=== PATIENT | female | born 1975 | race Caucasian/White ===

== ENCOUNTER 2024-08-12 11:29 | Emergency (ER) | payer BC, SELFPAY ==
--- NOTE | ~2024-08-12 | CT_ITS ---
History: Headache PROCEDURE: CT head without contrast. COMPARISON: 04/05/2019 TECHNIQUE: Axial imaging of the head performed from the skull base to the vertex without IV contrast. Sagittal a nd coronal reformations obtained. DLP: 605 mGy-cm FINDINGS: The ventricles are normal in size, shape and position. There is no mass, mass effect or midline shift. There is no abnormal extra-axial fluid collection or intracranial hemorrhage. Visualized paranasal sinuses are clear. The mastoid air cells are well aerated. No acute displaced fractures within the overlying cranium. Impression: No acute intracranial hemorrhage or suspicious mass effect. Reviewed, dictated and finalized at location A. Impression: No acute intracranial hemorrhage or suspicious mass effect.
[2024-08-12 11:30] VITALS: BP 123/67; PULSE 114; RESP 16; TEMP 36.6; O2SAT 100
--- OUTSIDE RECORDS SUMMARY | 2024-08-12 11:31 | XMS_ITS | Encounter Summary ---
Author Organization [facility] Healthcare Address [address] [place] [address] Care Team Providers Care Kiln Furniture Saw Tender Name Role Phone Dana Wilcox MD Primary Care Provider [phone] Jennifer Carlos MD Unavailable [phone] Encounter Details Date Type Department Care Team (Late st Contact Info) Description 08/29/2023 Telephone [facility] Medical Group at [address] [address] Becky Ram LPN Social History Tobacco Use Types Packs/Day Years Used Date Smoking Tobacco: Never Passive Smoke Exposure: Current Smokeless Tobacco: Never Alcohol Use Standard Drinks/Week Comments No 0 (1 standard drink = 0.6 oz pur e alcohol) AUDIT-C Answer Date Recorded Frequency of Alcohol Consumption Not on file 12/24/2022 Q2: How many drinks containi ng alcohol do you have on a typical day when you are drinking? Patient does not drink Frequency of Binge Drinking Not on file 08/2022 PHQ-2 Answer Date Recorded PHQ-2 Total Score (If total score is 3 or more points, staff should administer the PHQ-9) 0 08/16/2022 Comments No Sex and Gender Information Value Date Recorded Sex Assigned at Not on file Legal Sex Female 12:57 PM ECONOMIC MANAGER Gender Identity Female 02/12/2019 8:37 AM CDT Sexual Orientation Straight 12/22/2018 7: 36 AM CDT documented as of this encounter Ordered Prescriptions Prescription Sig Dispense Quantity Refills Last Filled Start Date End Date atorvastatin (LIPITOR) 10 mg tabletIndications:Hy perlipidemia, unspecified hyperlipidemia type Take 1 tablet (10 mg total) by mouth daily 90 tablet 1 08/29/2023 documented in this encounter Plan of Treatment Not on file documented as of this encounter Visit Diagnoses Diagnosis Hyperlipidemia, unspecified hyperlipidemia type documented in this encounter Discontinued Medications Medication Sig Discontinue Reason Start Date End Da te atorvastatin (LIPITOR) 10 mg tabletIndications:Hyperlip idemia, unspecified hyperlipidemia type TAKE 1 TABLET BY MOUTH EVERY DAY Reorder 07/25/2023 08/29/2023 documented as of this encounter Additional Health Concerns Infection Onset Date Last Indicated Resolved Time COVID: Suspected 04/29/2024 04/29/2024 04/30/2024 3:05 AM ECONOMIC MANAGER COVID: Suspected 06/21/2024 06/21/2024 06/21/2024 6:11 PM ECONOMIC MANAGER documented as of this encounter Care Teams Kiln Furniture Saw Tender Relationship Specialty Start Date End Date Dana Wilcox MD [address] [facility] [address] [place] [address] PCP - General 08/20/16 [place] [address] [place] [address] Director Of Social Media Marketing Obstetrics and Gynecology 01/20/21 documented as of this encounter
--- OUTSIDE RECORDS SUMMARY | 2024-08-12 11:31 | XMS_ITS | Referral Summary ---
Author Organization [facility] Address [facility] [place] [address] Care Team Providers Care Molybdenum Steamer Operator Name Role Phone Dana Wilcox MD Primary Care Provider [phone] Jennifer Carlos MD Unavailable [phone] Encounters Date Type Department Care Team Description 07/03/2024 3:30 PM LAB TECHNOLOGIST Procedure visit [facility] [address] [facility] [address] [place] [phone] Jarred Beckham NP Intractable chronic migraine without aura and without status migrainosus (Primary Dx) 06/21/2024 6:45 AM LAB TECHNOLOGIST - 06/21/2024 11:59 PM LAB TECHNOLOGIST Hospital Encounter [facility] [address] [place], [place] [id number] Bronchitis Discharge Disposition: Discharge to home or self care 06/21/2024 5:45 PM LAB TECHNOLOGIST Office Visit [facility] Medical Group [facility] Care at [address] [address] Chandrika Watters NP Bronchitis (Primary Dx) from Last 3 Months Allergies Active Allergy Reactions Criticality Noted Date Comments Azithromycin Other (See comments) Low Reaction: Gastrointestinal Intolerance, , Reaction: Gastrointestinal Intolerance, Erythromycin Unknown Low Medications tranexamic acid (Lysteda) 650 mg tabletIndications :Heavy menstrual bleeding Take 1 tablet (650 mg total) by mouth 3 (three) times a day Take 2 tablets every 8 hours for a maximum of 5 days during menstrual period. 30 tablet 11 03/09/20 21 Active naratriptan (AMERGE) 2.5 mg tablet TAKE 1 TABLET BY MOUTH AT ONSET OF HEADACHE. MAY REPEAT IN 2 HOURS IF NEEDED. MAX 2 TABS/24 HOURS 9 tablet 1 02/03/20 23 Active naproxen (NAPROSYN) 500 mg tablet TAKE 1 TABLET BY MOUTH 2 TIMES A DAY NEEDED FOR PAIN. 60 tablet 2 06/15/19 24 Active methocarbamoL (ROBAXIN) 500 mg tablet TAKE 1 TABLET BY MOUTH TWICE A DAY NEEDED FOR MUSCLE SPASMS 60 tablet 10/07/19 24 Active sertraline (ZOLOFT) 100 mg tabletIndications :Anxiety Take 1 tablet (100 mg total) by mouth daily 90 tablet 2 02/08/20 24 Active atorvastatin (LIPITOR) 10 mg tabletIndications :Hyperlipidemia, unspecified hyperlipidemia type Take 1 tablet (10 mg total) by mouth daily 90 tablet 2 02/08/20 24 Active desipramine (NOPRAMIN) 10 mg tablet TAKE 3 TABLETS BY MOUTH AT BEDTIME 270 tablet 04/16/20 24 Active benzonatate (TESSALON) 200 mg capsuleIndication s:Bronchitis Take 1 capsule (200 mg total) by mouth 3 (three) times a day as needed for cough 30 capsule 06/21/19 25 Active albuterol HFA (PROVENTIL HFA,VENTOLIN HFA,PROAIR HFA) 90 mcg/actuation inhalerIndication s:Bronchitis Inhale 2 puffs every 6 (six) hours as needed for wheezing or shortness of breath 1 each 06/21/19 25 Active methylPREDNISolon e (Medrol, Anthony,) 4 mg DosepackIndicatio ns:Bronchitis follow package directions 1 packet 06/21/19 25 Active dilTIAZem XR 120 mg 24 hr capsuleIndication s:HTN (hypertension), benign,Palpitatio ns TAKE 1 CAPSULE BY MOUTH EVERY DAY 90 capsule 1 07/19/19 25 Active dilTIAZem CD/XR/XT (dilTIAZem XR) 120 mg 24 hr capsuleIndication s:HTN (hypertension), benign,Palpitatio ns Take 1 capsule (120 mg total) by mouth daily 90 capsule 1 01/20/20 24 2024 Discontinued Active Problems Problem Noted Date Diagnosed Date Sinus tachycardia 07/29/2023 Carpal tunnel syndrome of right wrist 09/28/2018 Lymphadenopathy 01/20/2018 Assessment & Plan (01/20/2018 7:36 AM CDT): Patient apparently demonstrated a reactive lymph node along of the back of the head that was related to an ingrown hair. After antibiotic treatment resolved. Patient was reassured there was nothing of concern. Patient can follow back up as needed. Mixed hyperlipidemia 11/09/2017 Migraine without aura, not i ntractable, without status migrainosus 03/30/2017 Assessment & Plan (04/25/2020 8:52 AM LAB TECHNOLOGIST): Ms. Michel has a longstanding history of migraine headaches. She has failed multiple preventive treatment regimens. She has previously been on nortriptyline which was stopped due to side effects, Topamax which was stopped due to flaco gomez , and is currently on nopramin which has low efficacy for her migraine prevention. She is currently having 15-20 headache days per month that last all day. She has been taking her abortive treatments with minimal relief and often having to double dose her naratriptan. It has previously been discussed with her that she could possibly be a candidate for Botox for migraine protocol, due to her headache frequency when difficulty with other preventative medications I do believe she is a great candidate for Botox per migraine protocol. Plan: 1. Seek insurance coverage for Botox for migraine protocol. 2. Headache diary 3. Continue nopramin 10mg for headache prevention. 4. Continue naratriptan 2.5 mg tablets at the onset of acute headache. At today s visit migraine education was performed. We discussed avoidance of migraine triggers and non-medicinal strategies for preventing migraines. Topics of discussion included improved sleep hygiene, healthy diet, and stress reduction techniques. We also discussed the importance of avoiding medication overuse, as this can promote analgesic rebound headache. Right elbow pain 03/30/2017 Neck pain 10/03/2014 Overview (08/26/2016): Cervical neck pain Anxiety 03/22/2014 Overview (08/27/2016): Anxiety Assessment & Plan (08/07/2023 9:51 PM CDT): Stable-Zoloft refilled Dyspnea on exertion 12/28/2013 Overview (08/26/2016): JOHNSON (dyspnea on exertion) Chest pain 12/28/2013 Overview (08/27/2016): Chest pain HTN (hypertension), benign 12/28/2013 Overview (08/27/2016): HTN (hypertension), benign Family history of coronary artery disease 2013 Overview (08/27/2016): Family history of premature CAD Abnormal echocardiography 12/28/2013 Overview (08/27/2016): Abnormal echocardiogram Palpitations 12/28/2013 Overview (08/27/2016): Palpitation Extrinsic asthma 12/04/2013 Overview (08/27/2016): EXTRINSIC ASTHMA NOS Resolved Problems Problem Noted Date Diagnosed Date Resolved Date Dyslipidemia 12/28/2013 06/01/2022 Overview (08/26/2016): Dyslipidemia Immunizations Immunization Administration Dates Next Due Influenza, Quadrivalent, Spl it, Preservative Free, Intramuscular 04/26/2023,02/10/2022,04/25/2020 Influenza, Trivalent, Preser vative Free, Intramuscular 02/08/2024 Influenza, Unspecified 04/26/2023 Td, adsorbed 01/22/2002 Tdap 02/14/2014,02/14/2014 Social History Tobacco Use Types Packs/Day Years Used Date Smoking Tobacco: Never Passive Smoke Exposure: Current Smokeless Tobacco: Never Tobacco Cessation:Counseling Given: Not Answered Alcohol Use Standard Drinks/Week Comments No 0 (1 standard drink = 0.6 oz pur e alcohol) AUDIT-C Answer Date Recorded Q1: How often do you have a drink containing alcohol? Never 03/02/2024 Q2: How many drinks containi ng alcohol do you have on a typical day when you are drinking? Patient does not drink Q3: How often do you have si x or more drinks on one occasion? Never 03/02/2024 PHQ-2 Answer Date Recorded PHQ-2 Total Score 0 02/08/2024 Comments No Sex and Gender Information Value Date Recorded Sex Assigned at Not on file Legal Sex Female 12:57 PM LAB TECHNOLOGIST Gender Identity Female 02/12/2019 8:37 AM CDT Sexual Orientation Straight 12/22/2018 7: 36 AM CDT Last Filed Vital Signs Vital Sign Reading Time Taken Comments Blood Pressure 124/76 07/03/2024 3:20 PM LAB TECHNOLOGIST Pulse 103 07/03/2024 3:20 PM LAB TECHNOLOGIST Temperature 36.8 C (98.2 F) 06/21/2024 5:43 PM LAB TECHNOLOGIST Respiratory Rate 16 07/03/2024 3:20 PM LAB TECHNOLOGIST Oxygen Saturation 99% 07/03/2024 3:20 PM LAB TECHNOLOGIST Inhaled Oxygen Concentration - - Weight 56.7 kg (125 lb) 07/03/2024 3:20 PM LAB TECHNOLOGIST Height 157.5 cm (5' 2 ) 07/03/2024 3:20 PM LAB TECHNOLOGIST Body Mass Index 22.86 07/03/2024 3:20 PM LAB TECHNOLOGIST Plan of Treatment Not on file Procedures Procedure Name Priority Date/Time Associated Diagnosis Comments BOTOX INJECTION Routine 07/03/2024 3:30 PM LAB TECHNOLOGIST Intractable chronic migraine without aura and without status migrainosus POC INFLUENZA A/B, COVID-19 ANTIGEN Routine 06/21/2024 6:10 PM LAB TECHNOLOGIST Bronchitis POCT RAPID STREP Routine 06/21/2024 5:55 PM LAB TECHNOLOGIST Bronchitis THROAT CULTURE Routine 06/21/2024 5:55 PM LAB TECHNOLOGIST Bronchitis THINPREP IMAGING PAP AND HPV MRNA E6/E7 REFLEX HPV 16,18/45 Routine 04/06/2024 2:20 PM LAB TECHNOLOGIST Encounter for well woman exam HEPATITIS C ANTIBODY Routine 2024 9:09 AM CDT Encounter for hepatitis C screening test for low risk patient SCREENING MAMMOGRAM 2D BILATERAL Schedule Routine, Read Routine (OP Routine) 06/18/2022 COLONOSCOPY Routine 10/29/2016 from Last 3 Months or Most Recently Relevant to Health Maintenance Results * Botox Injection (07/03/2024 3:30 PM LAB TECHNOLOGIST) Narrative Annalise Salamanca - 07/03/2024 3:30 PM LAB TECHNOLOGIST Annalise Salamanca 07/04/2024 9:33 AM Botox Injection Performed by: Jarred Beckham NP Authorized by: Jarred Beckham NP [place] Protocol: Procedure Details - Botox Injection: Procedure Details: See Botox flow sheet for details on injection sites and amounts. us Jarred Beckham BOBBIN WINDER TENDER IN CLINIC/BEDSIDE ORDERABLES Fi nal Result * POC Influenza A/B, COVID-19 antigen (06/21/2024 6:10 PM LAB TECHNOLOGIST) Pathologist [facility] Influenza A Ag, POC Negative Negative [facility] Influenza B Ag, POC Negative Negative [facility]W COVID-19 Ag POC Presumptive Negative Presumptive Negative, Invalid [facility]W Swab 06/21/2024 6:10 PM LAB TECHNOLOGIST us Chandrika Watters NP POINT OF CARE TEST ORDERABLES Final Result Performing Organization Address City/State/[facility] Co de Phone Number [facility] CC EDW [address] [place] [address] * POCT rapid strep A (06/21/2024 5:55 PM LAB TECHNOLOGIST) Rapid Strep A, POC Negative Negative Swab 06/21/2024 5:55 PM LAB TECHNOLOGIST us Chandrika Watters NP POINT OF CARE TEST ORDERABLES Final Result * Throat culture Throat (06/21/2024 5:55 PM LAB TECHNOLOGIST) Report Final Report: No growth of pathogens. Comment:Testing performed by : [facility], [address] [facility], [place]., [address] Throat 06/21/2024 5:55 PM LAB TECHNOLOGIST 06/22/2024 1:11 AM LAB TECHNOLOGIST Narrative ALLI NUNN - 06/22/2024 7:33 PM LAB TECHNOLOGIST Testing performed by [facility] Microbiology Laboratory ([phone]). Chandrika Watters BOBBIN WINDER TENDER LAB MICROBIOLOGY - GENERAL ORD ERABLES Final Result ALLI NUNN [address] [place] [address] * ThinPrep(R) Imaging Pap and HPV mRNA E6/E7 Reflex HPV 16,18/45 (04/06/2024 2:20 PM LAB TECHNOLOGIST) CLINICAL INFORMATION: [facility] Comment:None given LMP [facility] Comment:NONE GIVEN Previous Pap [facility] Comment:NONE GIVEN Prev. Bx [facility] Comment:NONE GIVEN SOURCE: [facility] Comment:None given Pap, specimen adequacy [facility] Comment: Satisfactory for evaluation. Endocervical/transformation zone component absent. Age and/or menstrual status not provided HPV interp [facility] Comment: Cytology Results: Negative for intraepithelial lesion or malignancy. COMMENTS [facility] Comment: This Pap test has been evaluated with computer assisted technology. Screw Machine Setter [facility] Comment: AYANNA [place](ASCP) CT screening location: [place] [address] [place] [address] Comment [facility] Comment: EXPLANATORY NOTE: The Pap is a screening test for cervical cancer. It is not a diagnostic test and is subject to false negative and false positive results. It is most reliable when a satisfactory sample, regularly obtained, is submitted with relevant clinical findings and history, and when the Pap result is evaluated along with historic and current clinical information. Human papillomavirus RNA, High Risk E6/E7 Not Detected Not Detected [facility] [employer] Comment: Methodology: Manganese Wheeler-Mediated Amplification This assay detects E6/E7 viral messenger RNA (mRNA) from 14 high-risk HPV types (16,18,31,33,35,39,45,51,52,56,58,59,66,68). Cervical sources are required for HPV testing. If a vaginal source from a patient who has had a total hysterectomy with removal of cervix was submitted, please contact the testing laboratory for alternative testing options. For additional information, please refer to [email or web address] (This link if provided for information/ educational purposes only.) Swab 04/06/2024 2:20 PM LAB TECHNOLOGIST 04/07/2024 2:33 AM LAB TECHNOLOGIST Result [facility] Maritza Vee NP LAB CYTOLOGY ORDERABLES Final Result Performing Organization Address City/[facility] [place]/[facility] Co de Phone Number [facility] [address] [place] [address] [facility] [address] [place] [address] * Hepatitis C antibody Blood (2024 9:09 AM CDT) Hep C Ab Nonreactive Nonreactive Comment: Interpretive Data Nonreactive: Antibodies to HCV not detected. Does NOT exclude the possibility of recent exposure to HCV. Equivocal: Equivocal for HCV antibodies. Supplemental molecular testing will be automatically performed to determine infection status in accordance with current CDC screening recommendations. Reactive: Positive for HCV antibodies. This may represent current or past HCV infection. Supplemental molecular testing will be automatically performed to determine current infection status in accordance with current CDC screening recommendations. Interpretive data was last revised on 2019. Blood 2024 9:09 AM CDT 2024 11:02 AM CDT Result [facility] Dana Wilcox MD LAB MICROBIOLOGY - GENERAL O RDERABLES Final Result Performing Organization Address City/[facility] [place]/ZIP Co de Phone Number HERMANNBETSY [address] Department [place] [address] * Screening Mammogram 2D Bilateral (06/18/2022) Anatomical Region Laterality Modality Breast Bilateral Mammography Result [facility] Historical Provider IMG MAMMO PROCEDURES Liss l Result * Colonoscopy (10/29/2016) Anatomical Region Laterality Modality Other Historical Provider ENDOSCOPY PROCEDURES Liss l Result from Last 3 Months or Most Recently Relevant to Health Maintenance Insurance ANTHEM ACCESS CHOICE ANTHEM ACCESS CHOICE ANTHEM ACCESS CHOICE [facility] ACCESS CHOICE Care Teams Molybdenum Steamer Operator Relationship Specialty Start Date End Date Dana Wilcox MD [address] [facility] [address], [place] [address] PCP - General 08/20/16 [place] [address] [place] [address] Sole Sewer Hand Obstetrics and Gynecology 01/20/21
--- OUTSIDE RECORDS SUMMARY | 2024-08-12 11:31 | XMS_ITS | Clinical Summary ---
Author Organization [facility] Address [address] [facility] [place] [address] Care Team Providers Care Lan Analyst Name Role Phone Izabella Cohen MD Unavailable [phone] Dana Wilcox MD Primary Care Provider [phone] Source Comments [facility],non-owned Affiliates and Associated Physician Practices is amultiple site organization consisting of ambulatory clinics and hospital sitesin [place], [place], [place] and [place]. This disclosure is being madepursuant to the Care Everywhere program and may not contain all information available regarding this patient. Last updated 18.[facility] Allergies Active Allergy Reactions Criticality Noted Date Comments Azithromycin Nausea and/or Vomiting,Psychiatric Medium 06/30/2015 Reaction: Gastrointestinal Intolerance, , Reaction: Gastrointestinal Intolerance, Erythromycin 06/20/2013 Medications * Be aware that medications may not be up to date on this document. Alwaysverify current medications with the patient. Medication Sig Dispensed Refills Start Date End Date Status naproxen (NAPROSYN) 500 MG tablet Take 500 mg by mouth 2 times daily. Active atorvastatin (LIPITOR) 10 MG tablet Take 10 mg by mouth at bedtime Active sertraline (ZOLOFT) 100 MG tablet Take 100 mg by mouth once daily Active desipramine (NORPRAMIN) 10 MG tablet TAKE 3 TABLETS BY MOUTH AT BEDTIME 08/28/2020 Active dilTIAZem ER 24hr (TIAZAC) 120 MG capsule TAKE ONE CAPSULE BY MOUTH ONCE DAILY 06/04/2020 Active sertraline (ZOLOFT) 100 MG tablet TAKE 1 TABLET BY MOUTH EVERY DAY 12/10/2020 Active fluticasone propionate (FLONASE) 50 MCG/ACT nasal sprayIndications:Sinus itis, unspecified chronicity, unspecified location Stout 2 (two) sprays into each nostril once daily 1 Each 01/06/2021 Active Active Problems Problem Noted Date Diagnosed Date Contusion of knee 06/20/2013 Social History Tobacco Use Types Packs/Day Years Used Date Smoking Tobacco: Never Smokeless Tobacco: Never Alcohol Use Standard Drinks/Week Comments Not Asked 0 (1 standard drink = 0.6 oz pur e alcohol) Sex and Gender Information Value Date Recorded Sex Assigned at Not on file Gender Identity Not on file Sexual Orientation Not on file Last Filed Vital Signs Vital Sign Reading Time Taken Comments Blood Pressure 124/80 01/06/2021 4:19 PM CDT Pulse 98 01/06/2021 4:19 PM CDT Temperature 37.3 C (99.1 F) 01/06/2021 4:19 PM CDT Respiratory Rate 16 01/06/2021 4:19 PM CDT Oxygen Saturation 98% 01/06/2021 4:19 PM CDT Inhaled Oxygen Concentration - - Weight 51.7 kg (114 lb) 01/06/2021 4:19 PM CDT Height 157.5 cm (5' 2 ) 01/06/2021 4:19 PM CDT Body Mass Index 20.85 01/06/2021 4:19 PM CDT Plan of Treatment Health Maintenance Due Date Last Done Comments COLOGUARD (AGES 45-75) - COL ON CA SCREENING 1974 COLON MONITORING 1974 COLONOSCOPY - COLON CA SCREENING 1974 CT COLONOGRAPHY - COLON CA SCREENING 1974 Colorectal Cancer Screening 1974 FIT - COLON CA SCREENING 1974 FLEX SIG - COLON CA SCREENING 1974 MAMMOGRAM 1974 PAP SMEAR 1974 HIV SCREENING 1989 HEPATITIS C SCREENING 02/13/1992 DTAP/TDAP/TD VACCINES (1 - Tdap) 1993 HEPATITIS B VACCINE (1 of 3 - 19+ 3-dose series) 1993 COVID-19 VACCINE ( - 2023-2 5 season) 2024 INFLUENZA VACCINE (#1) 2024 04/25/2020 PNEUMOCOCCAL VACCINE 50+ (1 of 1 - PCV) 02/18/2024 ZOSTER VACCINE (1 of 2) 02/18/2024 DEPRESSION SCREENING 05/23/2024 HIB VACCINE Aged Out No longer eligi ble based on patient's age to complete this topic HPV VACCINE Aged Out No longer eligi ble based on patient's age to complete this topic MENINGOCOCCAL (Group B) VACC INE SHARED DECISION-MAKING Aged Out No longer eligibl e based on patient's age to complete this topic MENINGOCOCCAL GROUPS A/C/Y/W VACCINE Aged Out No longer eligible b ased on patient's age to complete this topic Care Teams Lan Analyst Relationship Specialty Start Date End Date Dana Wilcox MD [address] [facility] [address], [place] [id number] PCP - General Internal Medicine 06/20/13 [place] [address] [facility] [address] [place], [place] [id number] Orthopedic Surgery 06/20/13
--- OUTSIDE RECORDS SUMMARY | 2024-08-12 11:31 | XMS_ITS | Clinical Summary ---
Author Organization [employer] [facility] Address [address] [place] [address] Phone Care Team Providers Care Commercial Relationship Manager Name Role Phone Dana Wilcox MD Primary Care Provider [phone] Allergies Active Allergy Reactions Criticality Noted Date Comments Azithromycin Nausea and Vomiting Low 06/30/2015 Medications nortriptyline (PAMELOR) 10 mg capsule 06/18/2015 Active busPIRone (BUSPAR) 10 mg tablet 06/19/2015 Active Active Problems Patient Care Coordination No te Formatting of this note migh t be different from the original. Primary Care: Dana Wilcox [place]: [place] [address] [place] [address] Other: Problem Noted Date Diagnosed Date Breast pain 06/30/2015 Encounters Date Type Department Care Team Description 08/01/2024 External Device Data STL ABSTRACTION Provider, Abstract 07/31/2024 External Device Data [facility] ABSTRACTION Provider, Abstract 07/28/2024 External Device Data [facility] ABSTRACTION Provider, Abstract 07/27/2024 External Device Data [facility] ABSTRACTION Provider, Abstract 07/25/2024 External Device Data [facility] ABSTRACTION Provider, Abstract 07/11/2024 External Device Data [facility] ABSTRACTION Provider, Abstract 06/13/2024 External Device Data [facility] ABSTRACTION Provider, Abstract from Last 3 Months Family History Medical History Relation Name Comments No Known Problems Daughter Stroke Father Heart Disease Maternal Grandmother No Known Problems Mother No Known Problems Other Breast Cancer Paternal Aunt Colon Cancer Paternal Grandfather Heart Disease Paternal Grandmother Liver Disease Paternal Uncle Pancreatic Cancer Paternal Uncle No Known Problems Sister Cancer Neg Hx Ovarian Cancer Neg Hx Relation Name Status Comments Daughter Father Maternal Grandmother Mother Other Paternal Aunt Paternal Grandfather Paternal Grandmother Paternal Uncle Sister Social History Tobacco Use Types Packs/Day Years Used Date Smoking Tobacco: Never Smokeless Tobacco: Never Alcohol Use Standard Drinks/Week Comments Yes 0 (1 standard drink = 0.6 oz pur e alcohol) rarely Comments No Sex and Gender Information Value Date Recorded Sex Assigned at Not on file Legal Sex Female 2:24 PM CDT Gender Identity Not on file Sexual Orientation Not on file Last Filed Vital Signs Vital Sign Reading Time Taken Comments Blood Pressure 131/89 06/30/2015 3:08 PM MACHINE SLAT BASKET MAKER Pulse 94 06/30/2015 3:08 PM MACHINE SLAT BASKET MAKER Temperature - - Respiratory Rate - - Oxygen Saturation - - Inhaled Oxygen Concentration - - Weight 46.3 kg (102 lb) 01/05/2019 1:00 PM CDT Height 157.5 cm (5' 2 ) 01/05/2019 1:00 PM CDT Body Mass Index 18.66 01/05/2019 1:00 PM CDT Plan of Treatment Health Maintenance Due Date Last Done Comments HEPATITIS B VACCINES (1 of 3 - 19+ 3-dose series) 1993 PAP SMEAR 02/18/2004 FIT-DNA Q 3 years 2019 FIT/FOBT Q 1 year 2019 Flex Sig/CT Colonography Q 5 years 2019 INFLUENZA VACCINE (#1) 2023 , 02/10/2022, 04/25/2020 DTAP/TDAP/TD VACCINES (2 - T d or Tdap) 02/15/2024 02/14/2014 ZOSTER VACCINE (1 of 2) 02/18/2024 BREAST CANCER SCREENING 08/04/2024 08/05/19 24, 06/18/2022, 05/01/2021, Additional history exists COLORECTAL SCREENING 10/29/2026 10/29/2016 Colorectal Cancer Screening 10/29/2026 Procedures Procedure Name Priority Date/Time Associated Diagnosis Comments MAMMO 3D CHLOE SCREEN BILAT W OR WO CAD Routine 08/05/2023 2:11 PM CDT Visit for screening mammogram from Last 3 Months or Most Recently Relevant to Health Maintenance Results * MAMMO 3D CHLOE SCREEN BILAT W OR WO CAD (08/05/2023 2:11 PM CDT) Anatomical Region Laterality Modality Breast Bilateral Mammography 08/05/2023 2:11 PM CDT Impressions 08/05/2023 5:07 PM CDT IMPRESSION: Normal screening mammogram. OVERALL FINAL ASSESSMENT: BI-RADS CATEGORY 1 - Negative Recommend annual screening mammography. DICTATION LOCATION: [facility] Narrative 08/05/2023 5:07 PM CDT EXAM: BILATERAL SCREENING DIGITAL MAMMOGRAM WITH 3D TOMOSYNTHESIS AND CAD DATE: 08/05/2023 2:11 PM INDICATION: Screening. COMPARISON STUDIES: 06-18-22 through 03-07-20 BREAST COMPOSITION: The breasts are extremely dense, which lowers the sensitivity of mammography. FINDINGS: There is no concerning mass, asymmetry, malignant microcalcification or area of architectural distortion in either breast. There is no change when compared to previous mammograms. Computer aided diagnosis was utilized. 3D tomosynthesis performed in 4 standard projections reveals no evidence of architectural distortion or mass. Procedure Note Riley Florentino MD - 08/05/2023 EXAM: BILATERAL SCREENING DIGITAL MAMMOGRAM WITH 3D TOMOSYNTHESIS AND CAD DATE: 08/05/2023 2:11 PM INDICATION: Screening. COMPARISON STUDIES: 06-18-22 through 03-07-20 BREAST COMPOSITION: The breasts are extremely dense, which lowers the sensitivity of mammography. FINDINGS: There is no concerning mass, asymmetry, malignant microcalcification or area of architectural distortion in either breast. There is no change when compared to previous mammograms. Computer aided diagnosis was utilized. 3D tomosynthesis performed in 4 standard projections reveals no evidence of architectural distortion or mass. IMPRESSION: Normal screening mammogram. OVERALL FINAL ASSESSMENT: BI-RADS CATEGORY 1 - Negative Recommend annual screening mammography. DICTATION LOCATION: [facility] Dana Wilcox MD MAMMO ORDERABLES Final Result from Last 3 Months or Most Recently Relevant to Health Maintenance Insurance [facility] BLUE ACCESS/TRUE BLUE PPO Care Teams Commercial Relationship Manager Relationship Specialty Start Date End Date Dana Wilcox MD PCP - General Internal Medicine 01/11/14
--- OUTSIDE RECORDS SUMMARY | 2024-08-12 11:31 | XMS_ITS | Clinical Summary ---
Author Organization [facility] Address [address] [place] [address] Care Team Providers Care Civil Preparedness Training Officer Name Role Phone Dana Wlicox MD Primary Care Provider [phone] Jennifer Carlos MD Unavailable [phone] Allergies Active Allergy Reactions Criticality Noted Date [...] 03/30/2017 Assessment & Plan (04/25/2020 8:52 AM VENDING SUPERVISOR): Ms. Michel has a longstanding history of [...] Date Dyslipidemia 12/28/2013 06/01/2022 Overview (08/26/2016): Dyslipidemia Encounters Date Type Department Care Team Description 07/03/2024 3:30 PM VENDING SUPERVISOR Procedure visit [facility] [address] [place] [address] Jarred Beckham NP Intractable chronic migraine without aura and without status migrainosus (Primary Dx) 06/21/2024 5:45 PM VENDING SUPERVISOR Office Visit [facility] at [address] [address] Chandrika Watters NP Bronchitis (Primary Dx) 06/21/2024 6:45 AM VENDING SUPERVISOR - 06/21/2024 11:59 PM VENDING SUPERVISOR Hospital Encounter [facility] [address] [place], [place] [id number] Bronchitis Discharge Disposition: Discharge to home or self care from Last 3 Months Immunizations Immunization Administration Dates Next Due Influenza, Quadrivalent, Spl it, Preservative Free, Intramuscular 04/26/2023,02/10/2022,04/25/2020 Influenza, Trivalent, Preser vative Free, Intramuscular 02/08/2024 Influenza, Unspecified 04/26/2023 Td, adsorbed 01/22/2002 Tdap 02/14/2014,02/14/2014 Surgical History Surgery Date Site/Laterality Comments APPENDECTOMY 05/23/1984 - 05/22/1985 Appendectomy LOOP ELECTROSURGICAL EXCISIO N PROCEDURE 05/23/1992 - 05/22/1993 LEEP SINUS SURGERY 05/23/1998 - 05/22/1999 Sinus Surgery SECTION 05/23/2000 - 05/22/2001 section MYOMECTOMY VAGINAL APPROACH 06/23/2017 WISDOM TOOTH EXTRACTION SECTION 08/14/2000 Medical History Medical History Date Comments Hyperlipidemia Hyperlipidemia Migraine Hypertension Anxiety Fibroids, intramural 08/2022 6 fibroids, largest 2.3 and 2.5 cm, others in the 1.0 cm range. Family History Medical History Relation Name Comments Other Brother 2 Alive and well; Cancer Father Father Coronary artery disease Father Father Terese nary artery disease; Hypertension Father Father Hypertension; Lung cancer Father Father Cancer Father's Brother Uncle Juan Early Father's Brother Uncle Juan Heart attack Father's Brother Uncle Juan Breast cancer Father's Sister Aunt Chante Other Mother Alive and well; /Alive and well; Other Other Family history of headache; Cancer Paternal Grandfather Grandpa Jus Other Sister 2 Alive and well; Ovarian cancer Neg Hx Relation Name Status Comments Brother 1 Alive Brother 2 Father Father Alive Father's Brother Uncle Juan Father's Sister Aunt Chante Mother Alive Other Paternal Grandfather Grandpa Jus Sister 1 Alive Sister 2 Social History Tobacco Use Types Packs/Day Years [...] on file Legal Sex Female 12:57 PM VENDING SUPERVISOR Gender Identity Female 02/12/2019 8:37 AM CDT Sexual Orientation Straight 12/22/2018 7: 36 AM CDT Obstetrics History Para Term AB IAB SAB Ectopic Multiple Livin g Live Births 1 1 1 1 1 Date Outcome GA Total Labor Labor/2nd/3rd Weight Sex Type Anes PTL Alesia A1 A5 Name Clin 001 Term F CS-LT ranv Living Comments:Daughter Rocio nna Last Filed Vital Signs Vital Sign Reading Time Taken Comments Blood Pressure 124/76 07/03/2024 3:20 PM VENDING SUPERVISOR Pulse 103 07/03/2024 3:20 PM VENDING SUPERVISOR Temperature 36.8 C (98.2 F) 06/21/2024 5:43 PM VENDING SUPERVISOR Respiratory Rate 16 07/03/2024 3:20 PM VENDING SUPERVISOR Oxygen Saturation 99% 07/03/2024 3:20 PM VENDING SUPERVISOR Inhaled Oxygen Concentration - - Weight 56.7 kg (125 lb) 07/03/2024 3:20 PM VENDING SUPERVISOR Height 157.5 cm (5' 2 ) 07/03/2024 3:20 PM VENDING SUPERVISOR Body Mass Index 22.86 07/03/2024 3:20 PM VENDING SUPERVISOR Plan of Treatment Health Maintenance Due Date Last Done Comments Hepatitis B Screening 02/18/1992 Pneumococcal vaccine <65 (1 of 2 - PCV) 1993 DTaP/Tdap/Td Vaccine (3 - Td or Tdap) 02/15/2024 02/14/2014, 02/14/2014, 01/22/2002 Zoster Vaccine (1 of 2) 02/18/2024 Breast Cancer Screening-Mammogram 08/04/2024 08/05/2023, 08/05/2023, 08/05/2023, Additional history exists Depression Screening 02/07/2025 02/08/2024, 08/16/2022, 02/10/2022, Additional history exists Cervical Cancer Screening 04/06/20252023, 03/30/2023, 03/03/2022, Additional history exists Regular Well Visit/Exam 18-64 04/06/2025, 02/08/2024, 03/30/2023, Additional history exists Colon Cancer Screening-Colonoscopy 10/29/20262016 Influenza Vaccine Completed 02/08/2024, , 04/26/2023, Additional history exists Hepatitis C Screening Completed 2024 Procedures Procedure Name Priority Date/Time Associated Diagnosis Comments BOTOX INJECTION Routine 07/03/2024 3:30 PM VENDING SUPERVISOR Intractable chronic migraine without aura and without status migrainosus POC INFLUENZA A/B, COVID-19 ANTIGEN Routine 06/21/2024 6:10 PM VENDING SUPERVISOR Bronchitis POCT RAPID STREP Routine 06/21/2024 5:55 PM VENDING SUPERVISOR Bronchitis THROAT CULTURE Routine 06/21/2024 5:55 PM VENDING SUPERVISOR Bronchitis THINPREP IMAGING PAP AND HPV MRNA E6/E7 REFLEX HPV 16,18/45 Routine 04/06/2024 2:20 PM VENDING SUPERVISOR Encounter for well woman exam HEPATITIS C ANTIBODY Routine 2024 9:09 AM CDT Encounter for hepatitis C screening test for low risk patient SCREENING MAMMOGRAM 2D BILATERAL Schedule Routine, Read Routine (OP Routine) 06/18/2022 COLONOSCOPY Routine 10/29/2016 from Last 3 Months or Most Recently Relevant to Health Maintenance Results * Botox Injection (07/03/2024 3:30 PM VENDING SUPERVISOR) Narrative Annalise Salamanca - 07/03/2024 3:30 PM VENDING SUPERVISOR Annalise Salamanca 07/04/2024 9:33 AM Botox Injection Performed by: Jarred Beckham NP Authorized by: Jarred Beckham NP Pierre Part Protocol: Procedure Details - Botox Injection: Procedure Details: See Botox flow sheet for details on injection sites and amounts. Jarred Beckham NP IN CLINIC/BEDSIDE ORDERABLES Fi nal Result * POC Influenza A/B, COVID-19 antigen (06/21/2024 6:10 PM VENDING SUPERVISOR) Influenza A Ag, POC Negative Negative [facility] Influenza B Ag, POC Negative Negative [facility] COVID-19 Ag POC Presumptive Negative Presumptive Negative, Invalid [facility] Swab 06/21/2024 6:10 PM VENDING SUPERVISOR Chandrika Watters NP POINT OF CARE TEST ORDERABLES Final Result [facility] [address] [place], [place] [id number] * POCT rapid strep A (06/21/2024 5:55 PM VENDING SUPERVISOR) Rapid Strep A, POC Negative Negative Swab 06/21/2024 5:55 PM VENDING SUPERVISOR us Chandrika Watters NP POINT OF CARE TEST ORDERABLES Final Result * Throat culture Throat (06/21/2024 5:55 PM VENDING SUPERVISOR) Report Final Report: No growth of pathogens. Comment:Testing performed by : [facility], [address] [facility], [place]., [address] Throat 06/21/2024 5:55 PM VENDING SUPERVISOR 06/22/2024 1:11 AM VENDING SUPERVISOR Narrative [facility] NUNN - 06/22/2024 7:33 PM VENDING SUPERVISOR Testing performed by [facility] Microbiology Laboratory ([phone]). us Chandrika Watters NP LAB MICROBIOLOGY - GENERAL ORD ERABLES Final Result [facility] [id number] Department of Laboratories [place], [place] [id number] * ThinPrep(R) Imaging Pap and HPV mRNA E6/E7 Reflex HPV 16,18/45 (04/06/2024 2:20 PM VENDING SUPERVISOR) CLINICAL INFORMATION: [facility] Comment:None given LMP [facility] Comment:NONE GIVEN Previous Pap [facility] Comment:NONE GIVEN Prev. Bx [facility] Comment:NONE GIVEN SOURCE: [facility] Comment:None given Pap, specimen adequacy [facility] Comment: Satisfactory for evaluation. Endocervical/transformation zone component absent. Age and/or menstrual status not provided HPV interp [facility] Comment: Cytology Results: Negative for intraepithelial lesion or malignancy. COMMENTS [facility] Comment: This Pap test has been evaluated with computer assisted technology. Clinical Assistant [facility] Comment: AYANNA [place](ASCP) CT screening location: [place] [address] [place] [address] [facility] Comment: EXPLANATORY NOTE: The Pap is a [...] High Risk E6/E7 Not Detected Not Detected [facility] Comment: Methodology: Hotel Receptionist-Mediated Amplification This assay detects E6/E7 viral messenger RNA (mRNA) from 14 high-risk HPV types (16,18,31,33,35,39,45,51,52,56,58,59,66,68). Cervical sources are required for HPV testing. If a vaginal source from a patient who has had a total hysterectomy with removal of cervix was submitted, please contact the testing laboratory for alternative testing options. For additional information, please refer to http://education.Witel/faq/IFN746q5 (This link if provided for information/ educational purposes only.) Swab 04/06/2024 2:20 PM VENDING SUPERVISOR 04/07/2024 2:33 AM VENDING SUPERVISOR Result [facility] Maritza Vee NP LAB CYTOLOGY ORDERABLES Final Result Next 1 [facility] [address] [place] [address] [facility] [address] [place] [address] * Hepatitis C antibody Blood (2024 9:09 [...] 9:09 AM CDT 2024 11:02 AM CDT Dana Wilcox MD LAB MICROBIOLOGY - GENERAL O RDERABLES Final Result [facility] [id number] [facility] Department [place] [address] * Screening Mammogram 2D Bilateral (06/18/2022) Anatomical Region Laterality Modality Breast Bilateral Mammography us Historical Provider IMG MAMMO PROCEDURES Liss l Result * Colonoscopy (10/29/2016) Anatomical Region Laterality Modality Other us Historical Provider ENDOSCOPY PROCEDURES Liss l Result from Last 3 Months or Most Recently Relevant to Health Maintenance Insurance [employer] ACCESS CHOICE [employer] ACCESS CHOICE ANTHEM ACCESS CHOICE ANTHEM ACCESS CHOICE Care Teams Civil Preparedness Training Officer Relationship Specialty Start Date End Date Dana Wilcox MD [address] [facility] [address], [place] [address] PCP - General 08/20/16 [place] [address] [place] [address] Button Machine Operator Obstetrics and Gynecology 01/20/21
[2024-08-12] MEDS: diphenhydrAMINE HCl INJ 50 MG/ML VIAL IV PUSH (12:40)
[2024-08-12] MEDS: SODIUM CHLORIDE 0.9% IV 1,000 ML 999 ML IV CONT (12:40)
[2024-08-12] MEDS: PROCHLORPERAZINE EDISYLATE 10 MG/2 ML VIAL IV PUSH (12:43)
--- NOTE | 2024-08-12 13:07 | ED.GENADULT ---
HPI - General Adult General Chief complaint: Headache Stated complaint: migraine x1d Time Seen by Provider: 08/12/24 11:54 History of Present Illness HPI narrative: 49-year-old female presenting to the emergency department for evaluation for headache that is been ongoing since yesterday. Patient does have history of migraines and does get Botox treatment every 3 months. Patient states she did just recently start her menstrual period and suspects this may be related to her headaches. Related Data Allergies Allergy/AdvReac Type Severity Reaction Status Date / Time erythromycin base Allergy Intermediate Nausea and Verified 08/12/24 11:29 Vomiting Review of Systems Review of Systems: All systems reviewed & are unremarkable except as noted in HPI and below PMFSH Past Medical History Medical History (Updated 08/12/24 @ 14:36 by David Small MD) Hx of migraines Asthma Surgical History Surgical History (Updated 04/05/19 @ 21:34 by Rc Gardiner) History of sinus surgery History of classical section H/O LEEP Exam Narrative: APPEARANCE: Well appearing, no pain, no distress, well-nourished. HEAD: normocephalic, atraumatic. EYES: PERRLA/EOMI, conjunctivae clear. NOSE: Normal no drainage EARS:TMS clear with good light reflex. THROAT: Pharynx clear, no exudate. NECK: Supple. No adenopathy, no masses. RESPIRATORY: Airway patent, respirations nonlabored. Clear to auscultation bilaterally, no rales, rhonchi, wheezing. CARDIOVASCULAR: Regular rate and rhythm without murmurs rubs or gallops. ABDOMINAL: Soft, nontender, nondistended, normal bowel sounds MUSCULOSKELETAL: Moves all extremities. Strength/ROM intact, No edema, No calf tenderness. NEURO: Alert. Cranial nerves II through XII intact. Grossly intact SKIN: Warm, dry. Normal Color Course Vital Signs Vital signs: Vital Signs Temperature 97.8 F 08/12/24 11:30 Pulse Rate 114 H 08/12/24 11:30 Respiratory Rate 16 08/12/24 11:30 Blood Pressure 123/67 08/12/24 11:30 Pulse Oximetry 100 08/12/24 11:30 Oxygen Delivery Room Air 08/12/24 11:30 Temperature 97.8 F 08/12/24 11:30 Pulse Rate 114 H 08/12/24 11:30 Respiratory Rate 16 08/12/24 11:30 Blood Pressure 123/67 08/12/24 11:30 Pulse Oximetry 100 08/12/24 11:30 Oxygen Delivery Room Air 08/12/24 11:30 Medical Decision Making MDM Narrative Medical decision making narrative: 49-year-old female presenting to the emergency department for evaluation for headache. Patient has a normal comprehensive neuro exam. Head CT was ordered due to this headache being different than her baseline. Patient was started on IV fluids, Compazine Benadryl. Head CT was negative. Patient did feel mildly improved with Toradol. Patient was encouraged close follow-up with her primary care physician. Differential Diagnosis Differential Diagnosis: Migraine, headache, cluster headache, tension headache, dehydration Vital Signs Vital Signs: Vital Signs Temperature 97.8 F 08/12/24 11:30 Pulse Rate 114 H 08/12/24 11:30 Respiratory Rate 16 08/12/24 11:30 Blood Pressure 123/67 08/12/24 11:30 Pulse Oximetry 100 08/12/24 11:30 Oxygen Delivery Room Air 08/12/24 11:30 Temperature 97.8 F 08/12/24 11:30 Pulse Rate 114 H 08/12/24 11:30 Respiratory Rate 16 08/12/24 11:30 Blood Pressure 123/67 08/12/24 11:30 Pulse Oximetry 100 08/12/24 11:30 Oxygen Delivery Room Air 08/12/24 11:30 Discharge Plan Discharge Clinical Impression: Migraine Patient Disposition: Home, Self-Care Condition: Stable Instructions: Antibiotic Form, Acute Headache (DC) Additional Instructions: Tylenol and ibuprofen for pain control. Have close follow-up with your primary care physician. If you have any worsening symptoms and please call or return to the emergency department. Patient Language: Kiswahili Follow-up/Referrals: PHYSICIAN NOT ON STAFF,NONSTAFF [Primary Care Provider] -
[2024-08-12] MEDS: KETOROLAC 15 MG/ML VIAL (*BKC) IV PUSH (14:05)
== END 2024-08-12 15:07 | disposition home or self-care (01) ==
PROVIDERS: Emergency Provider Emergency Medicine
DX: G43.909 Migraine, unspecified, not intractable, without status migrainosus (principal); J45.909 Unspecified asthma, uncomplicated
CPT/HCPCS: 70450; 96361; 96374; 96375; 99284; J0780; J1200; J1885; J7030